=== PATIENT | male | born 1990 | race Caucasian/White ===

== ENCOUNTER 2022-06-12 05:06 | Emergency (ER) | payer OTHER ==
[~2022-06-12] VITALS: Ht 172.7 cm; Wt 89.9 kg
[2022-06-12 05:07] VITALS: BP 120/64
[2022-06-12] MEDS ORDERED: PARO10TA3 PO (05:24)
[2022-06-12] MEDS ORDERED: IBUPROFEN 100MG 5ML SUSP UDC DYE FREE PO ONE (05:40)
[2022-06-12] MEDS ORDERED: ACETAMINOPHEN TAB 650MG DOSE (2X325MG) PO ONE (08:55)
[2022-06-12] MEDS ORDERED: IBUPROFEN 600MG TAB PO ONE (08:55)
[2022-06-12] MEDS ORDERED: IBUP-1022 PO (08:58)
== END 2022-06-12 10:07 | disposition home or self-care (01) ==
LOC: M ED 05:06
DX: U07.1 COVID-19 (principal); F41.9 Anxiety disorder, unspecified; F17.290 Nicotine dependence, other tobacco product, uncomplicated; Z88.0 Allergy status to penicillin; Z88.1 Allergy status to other antibiotic agents; Z88.8 Allergy status to other drugs, medicaments and biological substances

== ENCOUNTER 2024-10-01 20:25 | Emergency (ER) | payer OTHER ==
[~2024-10-01] VITALS: Ht 172.7 cm; Wt 82.7 kg
[~2024-10-01 20:25] MED LIST: IBUP-1022 PO; PARO10TA3 PO
[2024-10-01 23:57] LABS: BASO % 0.3 % (0.0-1.0); EOS % 0.1 % (0.0-3.0); HEMATOCRIT 44.2 % (42.0-52.0); HEMOGLOBIN 15.4 g/dl (13.5-17.5); LYMPH # 0.4 10^3/uL (1.5-5.0); LYMPH % 2.6 % (24.0-44.0); MEAN CORPUSCULAR HGB CONC 34.8 g/dl (32.0-36.5); MEAN CORPUSCULAR VOLUME 89.1 fl (80.0-96.0); MONO # 0.7 10^3/uL (0.0-0.8); NEUTROPHILS # 12.6 10^3/uL (1.5-8.5); NEUTROPHILS % 91.6 % (36.0-66.0); PLATELET COUNT, AUTOMATED 291 10^3/uL (150-450); RED BLOOD COUNT 4.96 10^6/uL (4.30-6.10); WHITE BLOOD COUNT 13.8 10^3/uL (4.0-10.0)
[2024-10-02 00:16] LABS: LIPASE 25 U/L (12-53)
[2024-10-02 00:20] LABS: ALBUMIN 4.8 G/DL (3.2-5.2); ALKALINE PHOSPHATASE 58 U/L (40-129); ALT/SGPT 25 U/L (7.0-40); AST/SGOT 14 U/L (<34); BILIRUBIN,DIRECT 0.4 MG/DL (<0.4); BILIRUBIN,TOTAL 1.4 MG/DL (0.3-1.2); BLOOD UREA NITROGEN 29 MG/DL (9-23); CALCIUM LEVEL 9.4 MG/DL (8.5-10.1); CARBON DIOXIDE LEVEL 26 MMOL/L (20-31); CHLORIDE LEVEL 105 MMOL/L (98-107); CREATININE FOR GFR 1.15 MG/DL (0.70-1.30); GLOMERULAR FILTRATION RATE > 60.0 (>60); GLUCOSE, FASTING 110 MG/DL (60-100); POTASSIUM SERUM 4.6 MMOL/L (3.5-5.1); SODIUM LEVEL 143 MMOL/L (136-145); TOTAL PROTEIN 7.8 G/DL (5.7-8.2)
[2024-10-02 00:56] VITALS: BP 102/73; TEMP 99.5; O2SAT 99
[2024-10-02] MEDS: ONDANSETRON 4MG ORAL DISINTEGRATING TAB PO ONE (01:10)
[2024-10-02] MEDS ORDERED: ONDA-282 PO (01:37)
== END 2024-10-02 01:58 | disposition home or self-care (01) ==
LOC: M ED 20:25
DX: A09 Infectious gastroenteritis and colitis, unspecified (principal); Z88.0 Allergy status to penicillin; Z88.1 Allergy status to other antibiotic agents; Z88.8 Allergy status to other drugs, medicaments and biological substances; Z79.1 Long term (current) use of non-steroidal anti-inflammatories (NSAID); Z79.83 Long term (current) use of bisphosphonates; Z79.899 Other long term (current) drug therapy